=== PATIENT | female | born 1980 | race Caucasian/White ===

== ENCOUNTER → 2016-05-02 | Outpatient (CLI) | payer OTHER ==
[~2016-05-02] MED LIST: CELEXA20 MG PO; CELEXA40 MG PO; MEDROL 4MG DOSPA4 MG PO; SEPTRA DS 8001 TAB PO; XANAX 0.5MG0.5 MG PO
== END ==
LOC: MC.RAD 09:20
DX: Z12.31 Encounter for screening mammogram for malignant neoplasm of breast (principal)

== ENCOUNTER 2016-09-25 15:55 | Emergency (ER) | payer OTHER ==
[~2016-09-25] VITALS: Ht 167.6 cm; Wt 81.8 kg
[~2016-09-25 15:55] MED LIST changes: -CELEXA40 MG PO; -XANAX 0.5MG0.5 MG PO
[2016-09-25 16:03] VITALS: TEMP 98.6
[2016-09-25] MEDS ORDERED: CELEXA40 MG PO (16:07)
[2016-09-25] MEDS ORDERED: XANAX 0.5MG0.5 MG PO (16:08)
[2016-09-25 17:08] LABS: BASO # 0.1 (0.0-0.2); BASO % 0.7 % (0.0-2.0); EOS # 0.3 (0.0-0.7); EOS % 3.1 % (0-4.0); GRAN # 6.3 (1.4-6.5); GRAN % 61.6 % (42.2-75.2); HEMATOCRIT 38.1 % (37.0-47.0); HEMOGLOBIN 13.3 g/dl (12.5-16.0); LYMPH # 2.9 (1.2-3.4); LYMPH % 27.8 % (20.0-51.0); MEAN CELL VOLUME 86 fl (80.0-100.0); MEAN CORPUSCULAR HEMOGLOBIN 30 pg (27.0-31.0); MEAN CORPUSCULAR HGB CONC 35 g/dl (33.0-37.0); MEAN PLATELET VOLUME 9.7 fl (7.4-10.4); MONO # 0.7 (0.1-0.6); MONO % 6.5 % (1.7-9.3); PLATELET COUNT 380 K/mm3 (130-400); RED BLOOD COUNT 4.41 M/mm3 (4.10-5.30); REDCELL DISTRIBUTION WIDTH-CV 12.2 % (11.5-14.5); WHITE BLOOD COUNT 10.2 K/mm3 (4.8-10.8)
[2016-09-25 17:14] LABS: ALANINE AMINOTRANSFERASE 28 U/L (9-52); ALKALINE PHOSPHATASE 58 U/L (50-136); ANION GAP 10 mmol/L (7-16); BILIRUBIN,TOTAL 0.5 mg/dL (0.0-1.0); BLOOD UREA NITROGEN 16 mg/dL (7-17); CARBON DIOXIDE 25 mmol/L (22-30); CHLORIDE 103 mmol/L (98-107); CREATININE, serum 0.71 mg/dL (0.52-1.25); GLUCOSE 93 mg/dL (74-106); POTASSIUM 4.2 mmol/L (3.4-5.0); SODIUM 138 mmol/L (137-145); TOTAL PROTEIN 7.1 gm/dL (6.4-8.2)
[2016-09-25 17:15] LABS: ACETAMINOPHEN < 10 ug/mL (10-30); SALICYLATE < 1.0 mg/dL
[2016-09-25 17:26] LABS: AMPHETAMINE URINE NEGATIVE; BARBITURATES URINE NEGATIVE; BENZODIAZEPINES URINE POSITIVE; BUPRENORPHINE URINE NEGATIVE; METHADONE URINE NEGATIVE; OPIATES URINE NEGATIVE; OXYCODONE URINE NEGATIVE; PHENCYCLIDINE URINE NEGATIVE; PROPOXYPHENE URINE NEGATIVE; THC CANNABINOIDS URINE NEGATIVE
[2016-09-25 23:04] VITALS: BP 135/94; PULSE 75
== END 2016-09-25 23:06 ==
LOC: COL.ER 15:55
PROVIDERS: Emergency Medicine
DX: F32.9 Major depressive disorder, single episode, unspecified (principal); R45.851 Suicidal ideations; F41.9 Anxiety disorder, unspecified